=== PATIENT | female | born 1995 | race Caucasian/White ===

== ENCOUNTER 2018-08-14 06:37 | Inpatient (IN) | payer OTHER ==
[2018-08-14] MEDS ORDERED: BUTORPHANOL 1 MG/ML INJ IV PRN (07:17)
[2018-08-14] MEDS ORDERED: PROMETHAZINE 25 MG/ML VIAL IM PRN ×2 (07:17)
[2018-08-14] MEDS ORDERED: CARBOPROST TROME 250 MCG/ML IM PRN (07:17)
[2018-08-14] MEDS ORDERED: Ringers Lactate 1,000 ML IV PRN (07:17)
[2018-08-14] MEDS ORDERED: METHYLERGONOVINE 0.2MG/ML AMP IM PRN (07:17)
[2018-08-14 07:59] LABS: RPR Titer ND
[2018-08-14] MEDS ORDERED: OXYTOCIN/LR 20 UNIT/1,000 ML BAG IV SCH ×2 (08:00→13:00)
[2018-08-14] MEDS ORDERED: Ringers Lactate 1,000 ML IV SCH (08:00)
[2018-08-14 08:02] LABS: Urine Appearance TURBID; Urine Bilirubin NEGATIVE (NEG); Urine Blood NEGATIVE (NEG); Urine Color YELLOW; Urine Glucose NEGATIVE (NEG); Urine Protein NEGATIVE (NEG)
[2018-08-14 08:03] LABS: Urine Microscopic Reflex ORDER UMIC
[2018-08-14 08:20] LABS: Absolute Lymphocytes (CBC) 1.5 K/uL (0.7-4.9); Absolute Monocytes 0.3 K/uL (0.1-1.3); Absolute Neutrophil 4.2 K/uL (1.8-8.0); Basophils % 0.4 % (0-1.3); Eosinophils % 1.6 % (0-4.4); Lymphocytes % 24.6 % (15.3-44.8); MPV 8.9 fL (7.6-11.3); Monocytes % 5.3 % (3.3-12.3); RBC Red Blood Cell Count 3.22 M/uL (3.86-4.86)
[2018-08-14 08:24] LABS: Urine Amorphous Sediment 3+ /HPF (NONE SEEN); Urine Bacteria 20-50 /HPF (<20); Urine Culture Reflex Order NOT NEEDED; Urine RBC <5 /HPF (NONE SEEN)
[2018-08-14 08:26] VITALS: BMI 137.2
[2018-08-14] MEDS ORDERED: FENTANYL CITR 100 MCG/2 ML IV ONE (09:40)
[2018-08-14] MEDS ORDERED: ROPIVACAINE HCL 100 ML IV PRN (09:41)
[2018-08-14] MEDS ORDERED: ROPIVACAINE HCL 2 MG/ML 100ML IV ONE (09:42)
[2018-08-14] MEDS ORDERED: ROPIVACAINE HCL 20 ML ONE (10:01)
[2018-08-14] MEDS ORDERED: ROPIVACAINE HCL 100 ML IV ONE (10:03)
[2018-08-14] MEDS ORDERED: FENTANYL CITR 100 MCG/2 ML ONE (10:54)
--- NOTE | 2018-08-14 11:14 | PREOPHP ---
Date of Admission: 08/14/2018 A 22-year-old 3, para 2, at 38 weeks 5 days with significant oligohydramnios and ssbro-ups-fn stational-age baby, high risk. Physicians - Ting Crump have suggested delivery at this point. S he is 1.5 cm, 50% effaced, vertex, -1 station. FHTs normal, reactive. Full admission talk given. A s soon as we have nurses available, we will start her on IV and once contractions start with rupture of membranes, sooner if possible. Full labor talk given. She is Rh negative, has received RhoGAM du ring the . Immune to Rubella. Negative beta Strep screen. C/MODL Voice ID: [id number]
--- NOTE | 2018-08-14 11:53 | PN ---
Patient is now opal fairly regularly on 2 milliunits of Pitocin. Baby looks good, 1.5 cm, 50% effaced, vertex, -1 station. Rupture of membranes, clear fluid. Not a lot as we would anticipate s ciara she was diagnosed with oligohydramnios, fluid is clear. Anticipate more rapid progress once we get to 3 to 4 cm. Labor talk again given. Beta strep negative. KAY/MODL Voice ID: [id number] Report ID: [id number]
[2018-08-14] MEDS ORDERED: Rho(D) IG (HUMAN) 300 MCG SYR IM PRN (12:43)
[2018-08-14] MEDS ORDERED: DIPHENHYDRAMINE 25 MG TAB/CAP PO PRN (12:43)
[2018-08-14] MEDS ORDERED: BISACODYL 10 MG RECTAL SUPP RECT PRN (12:43)
[2018-08-14] MEDS ORDERED: DOCUSATE NA/SENNA CONC 1 TAB PO PRN (12:43)
[2018-08-14] MEDS ORDERED: IBUPROFEN 200 MG TAB PO PRN (12:43)
[2018-08-14] MEDS ORDERED: ACETAMINOPHEN 500 MG TAB PO PRN (12:43)
[2018-08-14] MEDS ORDERED: Oxycodone HCl/Acetaminophen 1 TAB TAB PO PRN ×2 (12:43)
--- NOTE | 2018-08-14 17:09 | PN ---
At her request, epidural has been started. She is 3 cm, 60% effaced, vertex, -1 station. FHTs benitez l, reactive. She is on 12 mL an hour maintenance dose on the epidural returned at 10. She can move her legs very freely. She is only on 10 milliunits of Pitocin. We will increase that to get more ef fective contractions and then I think we will start seeing some progress once she gets to 4 to 5 cm. KAY/HAILEY Voice ID: [id number] Report ID: [id number]
[2018-08-14 21:34] LABS: RPR (Rapid Plasma Reagin) NON-REACT (NON-REACT)
--- NOTE | 2018-08-14 23:51 | OP ---
Surgeon: Rigo Ernst MD Azeb Amaral is a 22-year-old 3, para 2, 38 weeks 5 days, possibly as much as 39 weeks. Sig nificant history of oligohydramnios and small for gestational age baby. Recommended by high-risk spe cialist to deliver at this point. Came into labor and delivery at 1.5 cm, started on Pitocin augment ation. She is already having light contractions. Rupture of membranes at 1.5 cm, clear fluid, minim al. Epidural anesthesia established 3 cm. The patient went rapidly to complete. Second stage consis joyce of 1 push, a spontaneous delivery of a 4 to 5 pounds female, Apgars 9 and 9. No episiotomy. No laceration. Schultze delivery of the placenta, which was inspected and noted to be intact and normal . Less than 300 cc blood loss. The patient is Rh negative, has received RhoGAM during her . Immune to Rubella. Negative beta-strep screen. Tolerated all procedures well. Final Diagnoses: Term intrauterine at approximately 38 weeks 5 days, oligohydramnios, smal l for gestational age, labor induction, vaginal delivery, epidural anesthesia. NBC/MODL Voice ID: [id number] Report ID: [id number]
[2018-08-15] MEDS ORDERED: Tdap (Diph,Pertuss(Acell),Tet Vac) 0.5 ML SYR IMVAC ONE (09:24)
[2018-08-15 13:51] VITALS: BP 120/64; TEMP 96.5
--- NOTE | 2018-08-16 06:52 | DS ---
Date of Discharge: 08/15/2018 Hospital Course: Azeb Amaral, 22-year-old 3, para 2, 38 weeks 5 days, possibly up to 39 we eks and 2 days with known small for gestational age baby and oligohydramnios, was delivered a 4-1/2- to 5-pound female, Apgars 9 and 9. Epidural anesthesia. No episiotomy. No laceration. Schultze de livery of the placenta. Less than 300 cc blood loss. Rh negative. Baby is also Rh negative, so no RhoGAM needed. Immune to Rubella. Negative beta strep screen. Tdap suggested strongly. The patien t has no post epidural problems. Will be dismissed to return to my office in 6 weeks for followup. Final Diagnoses: Term intrauterine , 38 weeks 5 days, possibly 39 weeks and 2 days; oligohy dramnios; regular induction vaginal delivery; Tdap suggested; Rh negative; baby Rh negative. No post epidural problems. KAY/BHAVNAL Voice ID: [id number] Report ID: [id number]
[2018-08-18 03:01] LABS: HBsAG Nonreactive (Nonreactive)
== END 2018-08-15 15:00 | disposition home or self-care (01) | DRG 806 ==
LOC: 2ND-WC 06:37
PROVIDERS: ADMIT Specialist; ATTEND Specialist
PROC: 10E0XZZ Delivery of Products of Conception, External Approach (ICD-10-PCS; principal; 2018-08-14)
PROC: 3E033VJ Introduction of Other Hormone into Peripheral Vein, Percutaneous Approach (ICD-10-PCS; 2018-08-14)
PROC: 10907ZC Drainage of Amniotic Fluid, Therapeutic from Products of Conception, Via Natural or Artificial Opening (ICD-10-PCS; 2018-08-14)
DX: O41.03X0 Oligohydramnios, third trimester, not applicable or unspecified (principal); O36.0930 Maternal care for other rhesus isoimmunization, third trimester, not applicable or unspecified; Z37.0 Single live birth; O36.5930 Maternal care for other known or suspected poor fetal growth, third trimester, not applicable or unspecified; Z3A.38 38 weeks gestation of pregnancy
CPT/HCPCS: 36415; 76805; 76819; 81003; 81015; 85025; 85461; 86592; 86900; 86901; 87340; 90715; J2210; J2590; J2795; J3010

== ENCOUNTER 2019-07-01 12:41 | Emergency (ER) | payer OTHER, SELFPAY ==
--- NOTE | 2019-07-01 13:36 | ER ---
Nurse's Notes [facility] Name: Azeb Amaral Age: 23 yrs Sex: Female : 1995 Arrival Date: 07/01/2019 Time: 12:42 Bed 25 Private MD: Diagnosis: Nonpurulent mastitis associated with Presentation: 07/01 13:11 Presenting complaint: Patient states: redness and pain to right breast since 0600, pt aa5 states "I am still ". Pt also c/o chills and body aches. Transition of care: patient was not received from another setting of care. Onset of symptoms was July 01, 2019. Risk Assessment: Do you want to hurt yourself or someone else? Patient reports no desire to harm self or others. Initial Sepsis Screen: Does the patient meet any 2 criteria? No. Patient's initial sepsis screen is negative. Does the patient have a suspected source of infection? No. Patient's initial sepsis screen is negative. Care prior to arrival: None. 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 - Social history:: Smoking status: Patient uses tobacco products, 4 cigarettes a day . - Ebola Screening: : No symptoms or risks identified at this time. Vital Signs: 13:13 BP 110 / 68; Pulse 100; Resp 18 S; Temp 98.4(O); Pulse Ox 97% on R/A; Weight 49.44 kg aa5 (R); Height 5 ft. 2 in. (157.48 cm) (R); Pain 5/10; 13:13 Body Mass Index 19.94 (49.44 kg, 157.48 cm) aa5 ED Course: 12:42 Patient arrived in ED. as 13:11 Arm band placed on. aa5 13:12 Triage completed. aa5 13:27 [facility]rera [facility]C [facility]. kb 13:27 Guillermo Prater MD is Attending Physician. kb 13:40 Ciera Reed, RN is Primary Nurse. iw Administered Medications: No medications were administered Outcome: 13:35 Discharge ordered by . carmen 13:40 Discharged to home ambulatory. iw 13:40 Condition: good 13:40 Discharge instructions given to patient, Instructed on discharge instructions, follow up and referral plans. medication usage, Demonstrated understanding of instructions, follow-up care, medications, Prescriptions given X 1. 13:40 Patient left the ED. iw Signatures: Luci Barrera, SEWING MACHINE TESTER-C SEWING MACHINE TESTER-Bebe Woodall as Ciera Reed, RN RN iw Giovanna Pizano, RN RN aa5
--- NOTE | 2019-07-01 13:37 | EDPHYS ---
Physician Documentation [facility] Name: Azeb Amaral Age: 23 yrs Sex: Female : 1995 Arrival Date: 07/01/2019 Time: 12:42 Bed 25 Private MD: ED Physician Guillermo Prater HPI: 07/01 14:27 This 23 yrs old Female presents to ER via Ambulatory with complaints of kb Breast Problem. 14:27 the patient presents with a swollen area of the right breast. Description: kb erythematous, swollen, warm. Onset: The symptoms/episode began/occurred this morning. Possible cause(s): breast feeding. Associated signs and symptoms: Pertinent positives: erythema, swelling, tenderness, chills. Modifying factors: the symptoms are alleviated by nothing, the symptoms are aggravated by pressure, touching. Severity of symptoms: At their worst the symptoms were moderate, in the emergency department the symptoms are unchanged. The patient has not experienced similar symptoms in the past. The patient has not recently seen a physician. 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 - Social history:: Smoking status: Patient uses tobacco products, 4 cigarettes a day . - Ebola Screening: : No symptoms or risks identified at this time. ROS: 14:24 Neck: Negative for injury, pain, and swelling, Cardiovascular: Negative for chest pain, kb palpitations, and edema, Respiratory: Negative for shortness of breath, cough, wheezing, and pleuritic chest pain, Abdomen/GI: Negative for abdominal pain, nausea, vomiting, diarrhea, and constipation, Back: Negative for injury and pain, : Negative for injury, bleeding, discharge, and swelling, MS/Extremity: Negative for injury and deformity, Neuro: Negative for headache, weakness, numbness, tingling, and seizure. 14:24 Skin: Positive for erythema, swelling, of the right breast. 14:27 Constitutional: Positive for chills. kb Exam: 14:24 Constitutional: This is a well developed, well nourished patient who is awake, alert, kb and in no acute distress. Head/Face: Normocephalic, atraumatic. Neck: Trachea midline, no thyromegaly or masses palpated, and no cervical lymphadenopathy. Supple, full range of motion without nuchal rigidity, or vertebral point tenderness. No Meningismus. Cardiovascular: Regular rate and rhythm with a normal S1 and S2. No gallops, murmurs, or rubs. Normal PMI, no JVD. No pulse deficits. Respiratory: Lungs have equal breath sounds bilaterally, clear to auscultation and percussion. No rales, rhonchi or wheezes noted. No increased work of breathing, no retractions or nasal flaring. Abdomen/GI: Soft, non-tender, with normal bowel sounds. No distension or tympany. No guarding or rebound. No evidence of tenderness throughout. Back: No spinal tenderness. No costovertebral tenderness. Full range of motion. MS/ Extremity: Pulses equal, no cyanosis. Neurovascular intact. Full, normal range of motion. Neuro: Awake and alert, GCS 15, oriented to person, place, time, and situation. Cranial nerves II-XII grossly intact. Motor strength 5/5 in all extremities. Sensory grossly intact. Cerebellar exam normal. Normal gait. 14:24 Chest/axilla: Breasts: tenderness, that is moderate, of the right breast, mastitis to right breast. Vital Signs: 13:13 BP 110 / 68; Pulse 100; Resp 18 S; Temp 98.4(O); Pulse Ox 97% on R/A; Weight 49.44 kg aa5 (R); Height 5 ft. 2 in. (157.48 cm) (R); Pain 5/10; 13:13 Body Mass Index 19.94 (49.44 kg, 157.48 cm) aa5 MDM: 13:28 Patient medically screened. kb 14:26 Data reviewed: vital signs, nurses notes. Data interpreted: Pulse oximetry: on room air kb is 97 %. Interpretation: normal. Counseling: I had a detailed discussion with the patient and/or guardian regarding: the historical points, exam findings, and any diagnostic results supporting the discharge/admit diagnosis, the need for outpatient follow up, a family practitioner, to return to the emergency department if symptoms worsen or persist or if there are any questions or concerns that arise at home. Administered Medications: No medications were administered Disposition: 15:02 Co-signature as Attending Physician, Guillermo Prater MD I agree with the assessment and kdr plan of care. Disposition: 07/01/19 13:35 Discharged to Home. Impression: Nonpurulent mastitis associated with . - Condition is Stable. - Discharge Instructions: and Mastitis, Mastitis, [id number]. - Prescriptions for Dicloxacillin 500 mg Oral Capsule - take 1 capsule by ORAL route every 6 hours for 10 days; 40 capsule. - Medication Reconciliation Form, Thank You Letter, Antibiotic Education, Prescription Opioid Use form. - Follow up: Emergency Department; When: As needed; Reason: Worsening of condition. Follow up: Private Physician; When: 2 - 3 days; Reason: Recheck today's complaints, Continuance of care, Re-evaluation by your physician. Signatures: Luci Barrera, LASHELL-C LASHELL-Guillermo Johnston MD MD kdr Ciera Reed RN RN iw Giovanna Pizano RN RN aa5 Corrections: (The following items were deleted from the chart) 13:40 13:35 07/01/2019 13:35 Discharged to Home. Impression: Nonpurulent mastitis associated iw with . Condition is Stable. Forms are Medication Reconciliation Form, Thank You Letter, Antibiotic Education, Prescription Opioid Use. Follow up: Emergency Department; When: As needed; Reason: Worsening of condition. Follow up: Private Physician; When: 2 - 3 days; Reason: Recheck today's complaints, Continuance of care, Re-evaluation by your physician. kb 14:26 14:24 Chest/axilla: Breasts: tenderness, that is moderate, of the right breast, kb kb 14:27 14:24 Constitutional: Negative for fever, chills, and weight loss, Neck: Negative for kb injury, pain, and swelling, Cardiovascular: Negative for chest pain, palpitations, and edema, Respiratory: Negative for shortness of breath, cough, wheezing, and pleuritic chest pain, Abdomen/GI: Negative for abdominal pain, nausea, vomiting, diarrhea, and constipation, Back: Negative for injury and pain, : Negative for injury, bleeding, discharge, and swelling, MS/Extremity: Negative for injury and deformity, Neuro: Negative for headache, weakness, numbness, tingling, and seizure, kb
[2019-07-01 13:55] VITALS: BP 110/68; TEMP 98.4; O2SAT 97
== END 2019-07-01 13:40 | disposition home or self-care (01) ==
LOC: ER 12:41
DX: O91.23 Nonpurulent mastitis associated with lactation (principal); Z72.0 Tobacco use
CPT/HCPCS: 99282

== ENCOUNTER 2021-02-18 23:15 | Inpatient (IN) | payer OTHER ==
[2021-02-18] MEDS ORDERED: Ringers Lactate 1,000 ML IV PRN (23:28)
[2021-02-18] MEDS ORDERED: OXYTOCIN/LR 20 UNIT/1,000 ML BAG IV SCH (23:45)
[2021-02-18] MEDS ORDERED: Ringers Lactate 1,000 ML IV SCH (23:45)
[2021-02-19] MEDS ORDERED: 0.2% ROPIVACAINE (200 MG/100 ML) BAG EP ONE (00:23)
[2021-02-19] MEDS ORDERED: FENTANYL/BUPIVACAINE/NS/PF 200 MCG/100 ML BAG EP PRN (00:23)
[2021-02-19] MEDS ORDERED: FENTANYL CITR 100 MCG/2 ML IV ONE (00:24)
[2021-02-19 00:38] VITALS: BMI 26.3
[2021-02-19 00:47] LABS: Absolute Lymphocytes (CBC) 1.8 K/uL (0.7-4.9); Basophils % 0.3 % (0-1.3); Hematocrit 31.6 % (36.0-45.0); Lymphocytes % 16.5 % (15.3-44.8); MPV 8.5 fL (7.6-11.3); RBC Red Blood Cell Count 3.23 M/uL (3.86-4.86)
[2021-02-19 00:51] LABS: Urine Appearance CLEAR (Clear); Urine Bilirubin NEGATIVE (Negative); Urine Blood NEGATIVE (Negative); Urine Color YELLOW (Yellow); Urine Glucose NEGATIVE (Negative); Urine Protein NEGATIVE (Negative); Urine Specific Gravity 1.015 (1.005-1.030); Urine pH 7.5 (5.0-7.0)
[2021-02-19] MEDS ORDERED: BUTORPHANOL 1 MG/ML INJ ONE (01:05)
[2021-02-19 01:09] LABS: Urine Microscopic Reflex ORDER UMIC
[2021-02-19] MEDS ORDERED: METHYLERGONOVINE 0.2MG/ML AMP IM ONE (01:19)
[2021-02-19] MEDS ORDERED: ROPIVACAINE HCL 0 ML ONE (01:26)
[2021-02-19] MEDS ORDERED: BUPIVACAINE 0.25% PF 10 ML VIAL ONE (01:44)
[2021-02-19 02:11] LABS: Urine Bacteria 20-50 /HPF (<20); Urine RBC <5 /HPF (NONE SEEN)
[2021-02-19] MEDS ORDERED: Oxycodone HCl/Acetaminophen 1 TAB TAB PO PRN (03:53)
[2021-02-19] MEDS ORDERED: ACETAMINOPHEN 500 MG TAB PO PRN (03:53)
[2021-02-19] MEDS ORDERED: DOCUSATE NA/SENNA CONC 1 TAB PO PRN (03:53)
[2021-02-19] MEDS ORDERED: IBUPROFEN 200 MG TAB PO PRN (03:53)
[2021-02-19] MEDS ORDERED: ONDANSETRON 4 MG (ODT) TAB PO PRN (03:53)
[2021-02-19] MEDS ORDERED: Rho(D) IG (HUMAN) 300 MCG SYR IM PRN (03:53)
[2021-02-19] MEDS ORDERED: Tdap (Diph,Pertuss(Acell),Tet Vac) 0.5 ML SYR IMVAC ONE (03:53)
[2021-02-19] MEDS ORDERED: OXYTOCIN/LR 20 UNIT/1,000 ML BAG IV SCH (04:00)
[2021-02-19 11:41] LABS: Hematocrit 28.9 % (36.0-45.0)
--- NOTE | 2021-02-19 13:45 | SS ---
Date of Discharge: 02/18/[address] Ernst's patient. She is a 25-year-old G4, P3 39 weeks and 2 days of gestation, came into the hospital complaining also to contraction early in the morning, however, she denies any rupture of membranes or vaginal bleeding. The fetus has been active. She came to labor room for addy luation. She was previously scheduled for induction of labor, however, the baby's head is still not engaged, and therefore, Dr. Ernst felt that she may need a bit more time for the head engagemen t. She came to the hospital with the same cervical condition about 2-3 cm dilated, approximately 50% effaced, and the baby's hip was still ballotable. She has no regular contractions in her cervix con dition or labor did not progress. Category 1 monitor strip and the maternal vital sign was sta ble. She was sent home in good and stable condition. No prescription was given and a followup plan and labor precaution were all discussed well with the patient. The patient has agreed with the plan. ALEX/HAILEY Voice ID: [id number] Report ID: [id number]
--- NOTE | 2021-02-19 13:54 | PN ---
Date of Progress Note: 02/19/2021 Subjective: I round this patient this morning and also I awaited for the noon hemoglobin to come mya k. Hemoglobin is 9.8. Overall, she dropped 1 point, which is within the normal limits. Her uterus is currently firm with a minimum amount of lochia. education was done and also briefly di scussed on discharge planning. The patient is a . She was encouraged to increasing flu id intake and take vitamins one a day. The vaginal care, discussion were also co nducted. Most likely, the patient will be given some pain control medication to go home. General po stpartum care discussed. On today's exam, she was afebrile. Blood pressure was stable stable postpa rtum condition. BW/MODL Voice ID: [id number] Report ID: [id number]
[2021-02-19] MEDS ORDERED: IBUPROFEN 600 MG TAB PO PRN (14:00)
[2021-02-19] MEDS: Oxycodone HCl/Acetaminophen 1 TAB TAB PO PRN (19:55)
[2021-02-20] MEDS: Oxycodone HCl/Acetaminophen 1 TAB TAB PO PRN (06:30)
--- NOTE | 2021-02-20 07:46 | DN ---
Surgeon: Scott Wallace Azeb was admitted just prior to midnight on 02/18/2021 Active labor at 4 cm. She was admitted. He r labor progressed she is currently comfortable with epidural regional anesthesia and cervix conditio n is about 7 cm. I performed the artificial rupture of membrane showing clear amniotic fluid. Cervi x examined at 7 cm/100% effaced/ _-2 station. Category 1 monitor strip. Maternal blood pressu re and vital signs were stable. She was afebrile. Her labor progressed quickly during the next few hours and she was ready for second stage of labor. During the second stage of labor, her entire vaginal area was prepped and washed by using diluted Bet adine solution. Then, she was draped in a sterile fashion. Baby's position was GRISELDA with internal de scent and finally baby was finally delivered. Delivery to shoulders, body of the delivery f inally completed. Large amount of clear amniotic fluid came afterward. Baby's nose and mouth were w ell bulb suctioned followed by clamping umbilical cord and cord was cut and baby passed on to the [facility]. Cord blood obtained. Placenta delivered brambila presentation. There was no excessive b leed EBL was 381 cc. There were no complications. A well baby boy delivered with scores of 9 and 10. Weight 7 pound 13 ounces, 3090 g. BW/MODL Voice ID: [id number] Report ID: [id number]
--- NOTE | 2021-02-20 08:00 | DS ---
Hospital Course: This is a 25-year-old 4, para 3, 39 weeks plus gestation, came in active [facility] and was delivered by Dr. Wallace in my absence. The patient had an uneventful labor with a delivery of a 6 pounds 13 ounces male infant, good Apgars, no episiotomy, no lacerations, epidural anesthesia . Minimal blood loss at the time of delivery. Rh negative. Baby also Rh negative. Rubella immune. COVID unknown and strep negative. afebrile, ambulating, and voiding. Lochia is normal. She will be dismissed later this morning to report back to my office in 6 weeks for followup to rep ort any temperature elevation of 100 degrees or greater, severe pain, heavy bleeding, or any other ty pe of abnormalities. No post epidural problems. She will be dismissed with prescription Motrin if s he chooses to take them, but right now she is not taking anything. Final Diagnoses: Term intrauterine , spontaneous vaginal delivery, epidural anesthesia. Rh negative. Baby Rh negative. KAY/HAILEY Voice ID: [id number] Report ID: [id number]
[2021-02-20] MEDS ORDERED: Tdap (Diph,Pertuss(Acell),Tet Vac) 0.5 ML SYR IMVAC ONE (11:00)
[2021-02-20 11:58] VITALS: BP 113/65; TEMP 96.5
[2021-02-20 23:36] LABS: RPR (Rapid Plasma Reagin) NON-REACT (NON-REACT)
[2021-02-22 13:51] LABS: HBsAG Nonreactive (Nonreactive)
== END 2021-02-20 13:35 | disposition home or self-care (01) | DRG 807 ==
LOC: 2ND-WC 23:15
PROVIDERS: ADMIT Specialist; ATTEND Specialist
PROC: 10E0XZZ Delivery of Products of Conception, External Approach (ICD-10-PCS; principal; 2021-02-19)
PROC: 10907ZC Drainage of Amniotic Fluid, Therapeutic from Products of Conception, Via Natural or Artificial Opening (ICD-10-PCS; 2021-02-19)
DX: O80 Encounter for full-term uncomplicated delivery (principal); Z37.0 Single live birth; Z3A.39 39 weeks gestation of pregnancy
CPT/HCPCS: 36415; 81003; 81015; 85014; 85018; 85025; 86592; 86850; 86870; 86900; 86901; 87086; 87088; 87340; 90471; 90715; 99218; J0595; J2210; J2590; J2795; J3010; J7120